=== PATIENT | female | born 1990 | race Caucasian/White ===

== ENCOUNTER 2025-01-03 13:16 | Outpatient (AMB) | payer MEDICAID, SELFPAY ==
--- NOTE | 2025-01-03 13:26 | AMB.OBINITIA ---
Vital Signs 01/03/25 13:32 Height 1.6 m Height Method Stated Weight 59.421 kg Weight Measurement Method Standing Scale BMI 23.2 BP 114/71 Blood Pressure Source Automatic Cuff Blood Pressure Location Left Upper Arm Position Sitting Pulse 99 Pulse Source Monitor Temp 97.2 F Temp Source Oral Pulse Oximetry (%) 98 Oxygen Delivery Method Room Air Allergies/Home Meds Allergies & Medications Allergies No Known Allergies Allergy (Verified 01/03/25 13:35) Medication Reconciliation No Known Home Medications 01/03/25 [History Confirmed 01/03/25] Intake Visit Data Collection New Patient or Established: New Patient (never been to [facility]) Reason for Visit:: New OB visit Seen by Clinical Staff ONLY (RN/MA): No Ceiling Insulation Blower Required: No Do You Feel Safe at Home: Yes Authorities Contacted: N/A PCP or OBGYN visit in last 3 months: Yes Hx Now: Yes Are you currently on any form of Control: No Last menstrual period: 09/13/24 Pain Present Currently: No Pain Scale Used: Turcios-Starkey/Numerical Pain scale:: 0 Smoking Status Smoking Status: Never smoker Questionnaires Covid-19 Vaccine Questionnaire Has patient been vacinated for Covid-19 Have you been vacinated for Covid-19: No PHQ-9 PHQ-2 Over the last 2 weeks, how often have you been bothered by any of the following problems? 1. Little interest or pleasure in doing things: not at all 2. Feeling down, depressed, or hopeless: not at all Total score: 0 Social History Living Situation History Marital Status: Lives With: Family Housing: House Housing Other:: Patient stays at home and homeschools her children. 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 Tobacco History Smoking Status: Never smoker Alcohol History Alcohol Intake: Former Alcohol Intake Frequency: holidays/special occasions only Domestic Abuse History Do You Feel Safe at Home: Yes Past Medical History Past Medical History Have you ever been diagnosed with any of the following: Neurological Problems Meningitis: No Seizures: No Guillain-Austin Syndrome: No Migraine: No Cardiology Problems Cardiac Arrhythmia: No Heart Murmur: No Atherosclerotic Heart Disease: No Hypercholesterolemia: No Rheumatic Fever: No Deep Vein Thrombosis: No Hypertension: No Hypotension: No Respiratory Problems Asthma: No Pulmonary Embolism: No Sleep Apnea: No Stomache/Intestinal Problems Celiac Disease: No Gall Bladder Disease: No Diverticulitis: No Gastroesophageal Reflux Disease: No Genital/Urinary Problems Renal Disease: No Kidney Stones: No Reproductive Problems Breast Cancer: No Endometriosis: No Fibroids: No Genital Herpes: No Gonorrhea: No Pelvic Inflammatory Disease: No Polycystic Ovarian Syndrome: No Previous Pregnancies: Yes (History of x 3 in the past) Syphilis: No Musculoskeletal Problems Arthritis: No Rheumatoid Arthritis: No Scoliosis: No Carpal Tunnel Syndrome: No Fibromyalgia: No Endocrine Problems Diabetes Mellitus Type 2: No Hyperthyroidism: No Hypothyroidism: No Systemic Lupus Erythematosus: No Blood Problems Anemia: No Clotting Problems: No Psychologic Problems Depression: No Anxiety: No Attention Deficit Disorder: No Other Problems Hospitalization: Yes (For x 3 in the past) Autoimmune Disease: No Cosmetic Surgery: No Blood Transfusions: No Anesthesia Reactions: No Surgical History Appendectomy: No Bariatric Surgery: No Breast Surgery: No History of Present Illness HPI Narrative Patient is a 34-year-old -0-0-3 history of x 3 in the past used to be my patient in [place] who presents as a new OB appointment. Patient is about 18 weeks by her last menstrual period. She did see Dr. Manzano at [facility] who ordered labs and an NIPT she does not have these results back yet. She is concerned because she had a pretty severe cold first trimester she did not have fevers or a rash. Patient has had x 3 in the past and needs a repeat . Today she denies heavy bleeding, cramping or pain. Her last Pap was in 2022 OB Initial Visit Menstrual History Menstrual reliability: definite Flow: normal Menstrual regularity: regular Monthly: Yes On control pills at conception: No OB History : 4 Para: 3 # of Living Children: 3 Delivery History 1st : Child's name: GRADY date: 04/29/19 sex: male Gestational age at delivery (weeks): 40 Delivery type: weight (lbs): 4082.331 g Delivery complications: CS for arrest D/O History of depression before or after : No 2nd : Child's name: IMELAD date: 02/18/21 sex: male Gestational age at delivery (weeks): 39 Delivery type: weight (lbs): 8000 g History of depression before or after : No Additional comments: Scheduled repeat CS 3rd : Child's name: NICOLE date: 06/16/23 sex: male Gestational age at delivery (weeks): 39 Delivery type: weight (lbs): 8000 g History of depression before or after : No Additional comments: Scheduled repeat Infection History & Risk Evaluation History of STDs: none HIV risk evaluation: low risk Hepatitis B risk evaluation: low risk Patient or partner has history of Genital Herpes: No Genetic Screening & History Genetic Screening/Teratology Counseling - Includes patient, baby's father, or anyone in either family with: 1. Patient's age 35 years or older as of estimated date of delivery: No 2. Thalassemia (Afghan, Kinyarwanda, Mediterranean, or Background); MCV less than 80: No 3. Neural Tube Defect (Meningomyelocele, Spina Bifida, or Anencephaly): No 4. Congenital Heart Defect: No 5. Down Syndrome: No 6. Diego-Sachs (Ashkenazi Mormon, Cajun, Azeri [place]): No 7. Zeb Disease (Ashkenazi Mormon): No 8. Familial Dysautonomia (Ashkenazi Mormon): No 9. Sickle Cell Disease or Trait (): No 10. Hemophilia or other blood disorders: No 11. Muscular Dystrophy: No 12. Cystic Fibrosis: No 13. Ranier's Chorea: No 14. Mental Retardation/Autism: No 15. Other inherited genetic or chromosomal disorder: No 16. Maternal Metabolic Disorder (EG,TYPE 1 Diabetes, PKU): No 17. Patient or baby's father had a child with defects not listed above: No 18. Recurrent loss or a stillbirth: No 19. Medications (including supplements, vitamins, herbs or otc drugs)/illicit/recreational drugs/alcohol since last menstrual period: No 20. Any other: No Comments/Counseling: Patient has already had NIPT drawn no results available yet Infection History 1. Live with someone with TB or exposed to TB: No 2. Rash or viral illness since last menstrual period: No 3. Hepatitis B,C: No Other (see comments) Source: [employer] OB Flowsheet OB Flowsheet Initial Weight: Not Recorded Date <del>?</del> EGA Weight Edema CTX Effacement BP Fundal ht Pres Dilation Effacement Station Visit Note Alb Glu FHR Mov 01/03/25 <del>?</del> 16w 0d 59.421 kg 114/71 130 active Review of Systems Constitutional Constitutional: Reports system reviewed and no additional complaints, except as documented Exam General Limitations: no limitations General Appearance: alert, in no apparent distress, comfortable, cooperative, healthy appearing and well groomed Head Head exam: atraumatic, normocephalic and normal inspection Neck Neck exam: Present normal inspection, full ROM and trachea midline Chest Chest inspection: Present normal inspection and symmetric chest wall rise Resp Respiratory exam: Present normal lung sounds bilaterally Card Cardiovascular exam: Present regular rate, normal rhythm and normal heart sounds Abdominal Abdominal exam: Present soft and normal bowel sounds Psych Psychiatric exam: Present normal affect and normal mood Skin Skin exam: Present warm, dry, intact and normal color Assessment & Plan Diagnosis / Problem List (1) Previous section: Status: Acute Plan: Previous x 3 for elective repeat at 39 weeks. (2) : Status: Acute Qualifiers: Weeks of gestation: 16 weeks Qualified Code(s): Z3A.16 - 16 weeks gestation of Plan: Follow-up on labs and NIPT. Order 20-week ultrasound for 4 weeks Additional Plan Follow Up: 4 Weeks Office Procedures OB Clinic LOC & Office Proc's Nursing/Assessment Patient Status: Initial/New Patient OB Clinic Nursing Assessment: BP Monitoring, Medication Reconciliation, Update PMH in EMR and Vital Signs OB Clinic Coordination of Care: Consent,records obtained, informed consent, Education Simp Pt/Fam, Lab and Imaging orders and Staff clarify orders Special Needs: Heart tones New Patient Charge New Patient Point Assignment: [id number] New Patient Point Charge: TAILER IN Level 4 ([id number])
[2025-01-03 13:32] VITALS: BP 114/71; PULSE 99; TEMP 36.2; O2SAT 98; BMI 23.2
== END 2025-01-03 14:52 | disposition home or self-care (01) ==
LOC: HODSOBC 13:16
PROVIDERS: PCP Obstetrics & Gynecology; Supervising Provider Obstetrics & Gynecology; Visit Provider Obstetrics & Gynecology
DX: Z34.82 Encounter for supervision of other normal pregnancy, second trimester (principal); Z3A.16 16 weeks gestation of pregnancy
CPT/HCPCS: 99204; G0463

== ENCOUNTER 2025-02-10 13:09 | Outpatient (AMB) | payer MEDICAID, SELFPAY ==
[2025-02-10 13:18] VITALS: BP 110/74; PULSE 80; RESP 16; TEMP 36; O2SAT 100; BMI 24.0
--- NOTE | 2025-02-10 13:18 | AMB.OBVISIT ---
Vital Signs 02/10/25 13:18 Height 1.6 m Height Method Stated Weight 61.462 kg Weight Measurement Method Standing Scale BMI 24.0 BP 110/74 Blood Pressure Source Automatic Cuff Blood Pressure Location Left Upper Arm Position Sitting Respiration 16 Pulse 80 Pulse Source Monitor Temp 96.8 F Temp Source Oral Pulse Oximetry (%) 100 Oxygen Delivery Method Room Air Allergies/Home Meds Allergies & Medications Allergies No Known Allergies Allergy (Verified 02/10/25 13:19) Medication Reconciliation azithromycin 250 mg tablet See Rx Instructions PO .COMPLEX #6 tabs 02/10/25 [Rx] Intake Visit Data Collection New Patient or Established: Established Patient (seen at [facility] [place] within 3 years) Reason for Visit:: return OB Seen by Clinical Staff ONLY (RN/MA): No 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 1. Little interest or pleasure in doing things: not at all 2. Feeling down, depressed, or hopeless: not at all Total score: 0 PHQ-9 3. Trouble falling or staying asleep, or sleeping too much: Not at all 4. Feeling tired or having little energy: Not at all 5. Poor appetite or overeating: Not at all 6. Feeling bad about yourself - or that you are a failure or have let yourself or your family down: Not at all 7. Trouble concentrating on things, such as reading the newspaper or watching television: Not at all 8. Moving or speaking so slowly that other people could have noticed? - Or the opposite - being so fidgety or restless that you have been moving around a lot more than usual: not at all 9. Thoughts that you would be better off or of hurting yourself in some way: Not at all Total score: 0 If you checked off any problems, how difficult have these problems made it for you to do your work, take care of things at home, or get along with other people?: not difficult at all Source: Developed by Drs. Gabriel Morales, Carolina Alonso, Bhupendra Pelayo and colleagues, with an educational nitesh from [employer]. Depression screen completed yes Social History Living Situation History Lives With: Family Housing: House Housing Other:: Patient stays at home and homeschools her children. Her is a WEB PRODUCTION ARTIST Tobacco History Smoking Status: Never smoker Alcohol History Alcohol Intake: Former Alcohol Intake Frequency: holidays/special occasions only Domestic Abuse History Do You Feel Safe at Home: Yes Past Medical History Past Medical History Have you ever been diagnosed with any of the following: Neurological Problems Meningitis: No Seizures: No Guillain-Mabscott Syndrome: No Migraine: No Cardiology Problems Cardiac Arrhythmia: No Heart Murmur: No Atherosclerotic Heart Disease: No Hypercholesterolemia: No Rheumatic Fever: No Deep Vein Thrombosis: No Hypertension: No Hypotension: No Respiratory Problems Asthma: No Pulmonary Embolism: No Sleep Apnea: No Stomache/Intestinal Problems Celiac Disease: No Gall Bladder Disease: No Diverticulitis: No Gastroesophageal Reflux Disease: No Genital/Urinary Problems Renal Disease: No Kidney Stones: No Reproductive Problems Breast Cancer: No Endometriosis: No Fibroids: No Genital Herpes: No Gonorrhea: No Pelvic Inflammatory Disease: No Polycystic Ovarian Syndrome: No Previous Pregnancies: Yes (History of x 3 in the past) Syphilis: No Musculoskeletal Problems Arthritis: No Rheumatoid Arthritis: No Scoliosis: No Carpal Tunnel Syndrome: No Fibromyalgia: No Endocrine Problems Diabetes Mellitus Type 2: No Hyperthyroidism: No Hypothyroidism: No Systemic Lupus Erythematosus: No Blood Problems Anemia: No Clotting Problems: No Psychologic Problems Depression: No Anxiety: No Attention Deficit Disorder: No Other Problems Hospitalization: Yes (For x 3 in the past) Cosmetic Surgery: No Blood Transfusions: No Anesthesia Reactions: No Surgical History Appendectomy: No Bariatric Surgery: No Breast Surgery: No Visit RACHANA Calculator Estimated Delivery Date Method Current WG Current Estimate 06/20/25 LMP (Certain) 21w 4d Expected Delivery Route/Plan Patient's had x 3. Need to schedule fourth at approximately 38 weeks. Specific Issue/Plans 3 previous C-sections. Patient unsure whether she wants tubal ligation. Initial Weight: Not Recorded Date <del>?</del> EGA Weight Edema CTX Effacement BP Fundal ht Pres Dilation Effacement Station Visit Note Alb Glu FHR Mov 01/03/25 <del>?</del> 16w 0d 59.421 kg 114/71 130 active 02/10/25 <del>?</del> 21w 3d 61.462 kg 110/74 23 150 active Notes Visit Date: 02/10/25 Last Updated by: Trinity Rebolledo (OB Clinic)MD Patient has a small cough and congestion she is producing a lot of mucus she states it was green now that a little more clear she has been doing this for at least 10 days. First trimester she had bronchitis and was treated with amoxicillin from a walk-in clinic she states she threw it up and did not finish it. Patient feels worn out. She has 3 boys at home. She is 21-3/7 weeks with her fourth boy. She is okay with trying a Z-Ronny at this point. Also she had a normal anatomy scan in [place] I do not have the results she has had a normal NIPT and I do not have those results patient is reporting vulvar varicosities and we did discuss a brace to her perineum. Assessment & Plan Diagnosis / Problem List (1) : Status: Acute Qualifiers: Weeks of gestation: 21 weeks Qualified Code(s): Z3A.21 - 21 weeks gestation of (2) Previous section: Status: Acute Assessment and Plan: Need to schedule at 38 weeks. (3) Vulvar varices in , second trimester: Status: Acute Assessment and Plan: Recommend vulvar support brace Office Procedures OB Clinic LOC & Office Proc's Nursing/Assessment Patient Status: Established Patient OB Clinic Nursing Assessment: BP Monitoring, Medication Reconciliation, Update PMH in EMR and Vital Signs OB Clinic Coordination of Care: Consent,records obtained, informed consent, Education Simp Pt/Fam and Staff clarify orders Special Needs: Heart tones Established Patient Charge Established Patient Point Assignment: 105 Established Patient Point Charge: EP Level 3 (80-115)
== END 2025-02-10 13:42 | disposition home or self-care (01) ==
LOC: HODSOBC 13:09
PROVIDERS: Supervising Provider Obstetrics & Gynecology; Visit Provider Obstetrics & Gynecology
DX: O22.12 Genital varices in pregnancy, second trimester (principal); O34.219 Maternal care for unspecified type scar from previous cesarean delivery; Z3A.21 21 weeks gestation of pregnancy
CPT/HCPCS: 99213; G0463

== ENCOUNTER 2025-03-10 08:26 | Outpatient (AMB) | payer MEDICAID, SELFPAY ==
--- NOTE | 2025-03-10 08:24 | OBCLNT_ITS ---
Vital Signs 03/10/25 08:29 Height 1.6 m Height Method Stated Weight 65.998 kg Weight Measurement Method Standing Scale BMI 25.7 BP 104/67 Blood Pressure Source Automatic Cuff Blood Pressure Location Left Upper Arm Position Sitting Respiration 16 Pulse 71 Pulse Source Monitor Temp 97.5 F Temp Source Oral Pulse Oximetry (%) 98 Oxygen Delivery Method Room Air Allergies/Home Meds Allergies & Medications Allergies No Known Allergies Allergy (Verified 03/10/25 08:31) Intake Visit Data Collection New Patient or Established: Established Patient (seen at [facility] within 3 years) Reason for Visit:: care 25 weeks Seen by Clinical Staff ONLY (RN/MA): No Financial Aid Officer Required: No Do You Feel Safe at Home: Yes Authorities Contacted: N/A PCP or OBGYN visit in last 3 months: Yes Date of Last PCP or OBGYN visit: 02/10/25 Hx Now: Yes Are you currently on any form of Control: No Pain Present Currently: No Pain Scale Used: Turcios-Starkey/Numerical Pain scale:: 0 Smoking Status Smoking Status: Never smoker Questionnaires Covid-19 Vaccine Questionnaire Has patient been vacinated for Covid-19 Have you been vacinated for Covid-19: No PHQ-9 PHQ-2 Over the last 2 weeks, how often have you been bothered by any of the following problems? 1. Little interest or pleasure in doing things: not at all 2. Feeling down, depressed, or hopeless: not at all Total score: 0 PHQ-9 3. Trouble falling or staying asleep, or sleeping too much: Not at all 4. Feeling tired or having little energy: Not at all 5. Poor appetite or overeating: Not at all 6. Feeling bad about yourself - or that you are a failure or have let yourself or your family down: Not at all 7. Trouble concentrating on things, such as reading the newspaper or watching television: Not at all 8. Moving or speaking so slowly that other people could have noticed? - Or the opposite - being so fidgety or restless that you have been moving around a lot more than usual: not at all 9. Thoughts that you would be better off or of hurting yourself in some way: Not at all Total score: 0 Source: Developed by Drs. Gabriel L. CarmenCarolina silveira, Bhupendra Pelayo and colleagues, with an educational nitesh from [employer]. Depression screen completed yes Social History Living Situation History Lives With: Family Housing: House Housing Other:: Patient stays at home and homeschools her children. 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 Tobacco History Smoking Status: Never smoker Second Hand Smoke Exposure: No Alcohol History Alcohol Intake: Former Alcohol Intake Frequency: holidays/special occasions only Domestic Abuse History Do You Feel Safe at Home: Yes Past Medical History Past Medical History Have you ever been diagnosed with any of the following: Neurological Problems Meningitis: No Seizures: No Guillain-Bristol Syndrome: No Migraine: No Cardiology Problems Cardiac Arrhythmia: No Heart Murmur: No Atherosclerotic Heart Disease: No Hypercholesterolemia: No Rheumatic Fever: No Deep Vein Thrombosis: No Hypertension: No Hypotension: No Respiratory Problems Asthma: No Pulmonary Embolism: No Sleep Apnea: No Stomache/Intestinal Problems Celiac Disease: No Gall Bladder Disease: No Diverticulitis: No Gastroesophageal Reflux Disease: No Genital/Urinary Problems Renal Disease: No Kidney Stones: No Reproductive Problems Breast Cancer: No Endometriosis: No Fibroids: No Genital Herpes: No Gonorrhea: No Pelvic Inflammatory Disease: No Polycystic Ovarian Syndrome: No Previous Pregnancies: Yes (History of x 3 in the past) Syphilis: No Musculoskeletal Problems Arthritis: No Rheumatoid Arthritis: No Scoliosis: No Carpal Tunnel Syndrome: No Fibromyalgia: No Endocrine Problems Diabetes Mellitus Type 2: No Hyperthyroidism: No Hypothyroidism: No Systemic Lupus Erythematosus: No Blood Problems Anemia: No Clotting Problems: No Psychologic Problems Depression: No Anxiety: No Attention Deficit Disorder: No Other Problems Hospitalization: Yes (For x 3 in the past) Cosmetic Surgery: No Blood Transfusions: No Anesthesia Reactions: No Surgical History Appendectomy: No Bariatric Surgery: No Breast Surgery: No Visit OB Visit Log OB Flowsheet Initial Weight: Not Recorded Date -?-?-?-?-?-?-?-?-?-?-?-?- EGA Weight Edema CTX Effacement BP Fundal ht Pres Dilation Effacement Station Visit Note Alb Glu FHR Mov 01/03/25 -?-?-?-?-?-?-?-?-?-?-?-?- 16w 0d 59.421 kg 114/71 130 active 02/10/25 -?-?-?-?-?-?-?-?-?-?-?-?- 21w 3d 61.462 kg 110/74 23 150 active 03/10/25 -?-?-?-?-?-?-?-?-?-?-?-?- 25w 3d 65.998 kg 104/67 26 Schedule at 38 we eks. 140 active RACHANA Calculator Estimated Delivery Date Method Current WG Current Estimate 06/20/25 LMP (Certain) 25w 3d Comments: Labs [facility] 12/26/2024 : A positive\antibody negative\RPR nonreactive\HIV negative\rubella immune\HIV negative\hepatitis B surface antigen negative\hep C negative\TB negative Expected Delivery Route/Plan Patient's had x 3. Need to schedule fourth at approximately 38 weeks. Specific Issue/Plans 3 previous C-sections. Patient unsure whether she wants tubal ligation. Notes Visit Date: 03/10/25 Last Updated by: Trinity Rebolledo (OB Clinic)MD Weight gain discussed. Patient has gained 10 pounds. Increase calories. Schedule glucose challenge test. Visit Date: 02/10/25 Last Updated by: Trinity Rebolledo (OB Clinic)MD Patient has a small cough and congestion she is producing a lot of mucus she states it was green now that a little more clear she has been doing this for at least 10 days. First trimester she had bronchitis and was treated with amoxicillin from a walk-in clinic she states she threw it up and did not finish it. Patient feels worn out. She has 3 boys at home. She is 21-3/7 weeks with her fourth boy. She is okay with trying a Z-Ronny at this point. Also she had a normal anatomy scan in [place] I do not have the results she has had a normal NIPT and I do not have those results patient is reporting vulvar varicosities and we did discuss a brace to her perineum. Assessment & Plan Diagnosis / Problem List (1) Previous section: Status: Acute (2) : Status: Acute Qualifiers: Weeks of gestation: 21 weeks Qualified Code(s): Z3A.21 - 21 weeks ges tation of (3) Vulvar varices in , second trimester: Status: Acute Office Procedures OB Clinic LOC & Office Proc's Nursing/Assessment Patient Status: Established Patient OB Clinic Nursing Assessment: Medication Reconciliation, Update PMH in EMR and Vital Signs OB Clinic Coordination of Care: Complex Care and Chronic Disease 1-5, Consent,records obtained, informed consent, Education Simp Pt/Fam, Lab and Imaging orders, Results/Orders obtained and Staff clarify orders Special Needs: Heart tones Established Patient Charge Established Patient Point Assignment: 135 Established Patient Point Charge: EP Level 4 (120-155)
[2025-03-10 08:29] VITALS: BP 104/67; PULSE 71; RESP 16; TEMP 36.4; O2SAT 98; BMI 25.7
== END 2025-03-10 09:03 | disposition home or self-care (01) ==
LOC: HODSOBC 08:26
PROVIDERS: Supervising Provider Obstetrics & Gynecology; Visit Provider Obstetrics & Gynecology
DX: O09.292 Supervision of pregnancy with other poor reproductive or obstetric history, second trimester (principal); Z3A.25 25 weeks gestation of pregnancy; O34.219 Maternal care for unspecified type scar from previous cesarean delivery; O09.892 Supervision of other high risk pregnancies, second trimester; O22.12 Genital varices in pregnancy, second trimester
CPT/HCPCS: 99214; G0463

== ENCOUNTER 2025-04-09 11:06 | Outpatient (AMB) | payer MEDICAID, SELFPAY ==
[2025-04-09 11:11] VITALS: BP 104/64; PULSE 74; RESP 15; TEMP 36.4; O2SAT 98; BMI 26.4
--- NOTE | 2025-04-09 11:11 | AMB.OBVISIT ---
Vital Signs 04/09/25 11:11 Height 1.6 m Height Method Stated Weight 67.642 kg Weight Measurement Method Standing Scale BMI 26.4 BP 104/64 Blood Pressure Source Automatic Cuff Blood Pressure Location Right Upper Arm Position Sitting Respiration 15 Pulse 74 Pulse Source Monitor Temp 97.5 F Temp Source Oral Pulse Oximetry (%) 98 Oxygen Delivery Method Room Air Allergies/Home Meds Allergies & Medications Allergies No Known Allergies Allergy (Verified 04/09/25 11:11) Medication Reconciliation No Known Home Medications 04/09/25 [History Confirmed 04/09/25] Intake Visit Data Collection New Patient or Established: Established Patient (seen at [facility] within 3 years) Reason for Visit:: CARE Seen by Clinical Staff ONLY (RN/MA): No Family Consultant Required: No Do You Feel Safe at Home: Yes Authorities Contacted: N/A PCP or OBGYN visit in last 3 months: Yes Hx Now: Yes Are you currently on any form of Control: No Pain Present Currently: No Pain Scale Used: Turcios-Starkey/Numerical Pain scale:: 0 Smoking Status Smoking Status: Never smoker Questionnaires Covid-19 Vaccine Questionnaire Has patient been vacinated for Covid-19 Have you been vacinated for Covid-19: No PHQ-9 PHQ-2 Over the last 2 weeks, how often have you been bothered by any of the following problems? 1. Little interest or pleasure in doing things: not at all 2. Feeling down, depressed, or hopeless: not at all Total score: 0 PHQ-9 3. Trouble falling or staying asleep, or sleeping too much: Not at all 4. Feeling tired or having little energy: Not at all 5. Poor appetite or overeating: Not at all 6. Feeling bad about yourself - or that you are a failure or have let yourself or your family down: Not at all 7. Trouble concentrating on things, such as reading the newspaper or watching television: Not at all 8. Moving or speaking so slowly that other people could have noticed? - Or the opposite - being so fidgety or restless that you have been moving around a lot more than usual: not at all 9. Thoughts that you would be better off or of hurting yourself in some way: Not at all Total score: 0 Source: Developed by Drs. Gabriel Morales, Carolina Alonso, Bhupendra Pelayo and colleagues, with an educational nitesh from [employer]. Depression screen completed yes Social History Living Situation History Lives With: Family Housing: House Housing Other:: Patient stays at home and homeschools her children. 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: Past Medical History Past Medical History: No Hx Hypothyroidism, No Hx Hyperthyroidism, No Hx Breast Cancer, No Hx Hypertension, No Hx Anemia, No Hx Renal Disease, No Hx Deep Vein Thrombosis, No Hx Diabetes Mellitus Type 2 and No Hx Polycystic Ovarian Syndrome Care OB Visit Log OB Flowsheet Initial Weight: Not Recorded Date <del>?</del> EGA Weight BP Alb Glu CTX Pres Fundal ht FHR Mov Dilation Station Effacement Hx Notes Visit Note 01/03/25 <del>?</del> 16w 0d 59.421 kg 114/71 130 active 02/10/25 <del>?</del> 21w 3d 61.462 kg 110/74 23 150 active 03/10/25 <del>?</del> 25w 3d 65.998 kg 104/67 26 140 active Schedule at 38 weeks. 04/09/25 <del>?</del> 29w 5d 67.642 kg 104/64 31 135 active wants CS 06/12/25 Positive movement no contractions no vaginal bleeding no loss of fluids RACHANA Calculator Estimated Delivery Date Method Current WG Current Estimate 06/20/25 LMP (Certain) 29w 5d Comments: Records from [facility]. Blood type not checked. Antibody screen not checked. Rubella immune\RPR nonreactive\HIV negative\hepatitis B surface antigen negative\HIV negative\TB test negative\cystic fibrosis test negative. No urinalysis, gonorrhea, chlamydia checked. Glucose test 99. Expected Delivery Route/Plan Patient's had x 3. Need to schedule fourth at approximately 38 weeks. Specific Issue/Plans 3 previous C-sections. Patient unsure whether she wants tubal ligation. Notes Visit Date: 03/10/25 Last Updated by: Trinity Rebolledo (OB Clinic)MD Weight gain discussed. Patient has gained 10 pounds. Increase calories. Schedule glucose challenge test. Visit Date: 02/10/25 Last Updated by: Trinity Rebolledo (OB Clinic)MD Patient has a small cough and congestion she is producing a lot of mucus she states it was green now that a little more clear she has been doing this for at least 10 days. First trimester she had bronchitis and was treated with amoxicillin from a walk-in clinic she states she threw it up and did not finish it. Patient feels worn out. She has 3 boys at home. She is 21-3/7 weeks with her fourth boy. She is okay with trying a Z-Ronny at this point. Also she had a normal anatomy scan in [place] I do not have the results she has had a normal NIPT and I do not have those results patient is reporting vulvar varicosities and we did discuss a brace to her perineum. Office Procedures OB Clinic LOC & Office Proc's Nursing/Assessment Patient Status: Established Patient OB Clinic Nursing Assessment: Medication Reconciliation, Update PMH in EMR and Vital Signs OB Clinic Coordination of Care: Complex Care and Chronic Disease 1-5, Consent,records obtained, informed consent, Education Simp Pt/Fam, Lab and Imaging orders, Results/Orders obtained and Staff clarify orders Special Needs: Heart tones Established Patient Charge Established Patient Point Assignment: 135 Established Patient Point Charge: EP Level 4 (120-155)
== END 2025-04-09 11:22 | disposition home or self-care (01) ==
LOC: HODSOBC 11:06
PROVIDERS: PCP Obstetrics & Gynecology; Referring Provider Obstetrics & Gynecology; Supervising Provider Obstetrics & Gynecology; Visit Provider Obstetrics & Gynecology
DX: O09.293 Supervision of pregnancy with other poor reproductive or obstetric history, third trimester (principal); Z3A.29 29 weeks gestation of pregnancy; O34.219 Maternal care for unspecified type scar from previous cesarean delivery
CPT/HCPCS: 99214; G0463

== ENCOUNTER 2025-04-23 09:23 | Outpatient (AMB) | payer MEDICAID, SELFPAY ==
[2025-04-23 09:32] VITALS: BP 126/75; PULSE 103; RESP 18; TEMP 36.4; O2SAT 97; BMI 26.9
--- NOTE | 2025-04-23 09:32 | OBCLNT_ITS ---
Vital Signs 04/23/25 09:32 Height 1.6 m Height Method Stated Weight 69.059 kg Weight Measurement Method Standing Scale BMI 26.9 BP 126/75 Blood Pressure Source Automatic Cuff Blood Pressure Location Right Upper Arm Position Sitting Respiration 18 Pulse 103 H Pulse Source Monitor Temp 97.5 F Temp Source Temporal Artery Scan Pulse Oximetry (%) 97 Oxygen Delivery Method Room Air Allergies/Home Meds Allergies & Medications Allergies No Known Allergies Allergy (Verified 04/09/25 11:11) Intake Visit Data Collection New Patient or Established: Established Patient (seen at [facility] within 3 years) Reason for Visit:: OB 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 1. Little interest or pleasure in doing things: not at all PHQ-9 8. Moving or speaking so slowly that other people could have noticed? - Or the opposite - being so fidgety or restless that you have been moving around a lot more than usual: not at all Source: Developed by Drs. Gabriel Morales, Carolina Alonso, Bhupendra Pelayo and colleagues, with an educational nitesh from [employer]. Social History Living Situation History Marital Status: Lives With: Family Housing: House Housing Other:: Patient stays at home and homeschools her children. 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 Medical History Past Medical History: No Hx Hypothyroidism, No Hx Hyperthyroidism, No Hx Breast Cancer, No Hx Hypertension, No Hx Anemia, No Hx Renal Disease, No Hx Deep Vein Thrombosis, No Hx Diabetes Mellitus Type 2 and No Hx Polycystic Ovarian Syndrome Care OB Visit Log OB Flowsheet Initial Weight: Not Recorded Date -?-?-?-?-?-?-?-?-?-?-?-?- EGA Weight BP Alb Glu CTX Pres Fundal ht FHR Mov Dilation Station Effacement Hx Notes Visit Note 01/03/25 -?-?-?-?-?-?-?-?-?-?-?-?- 16w 0d 59.421 kg 114/71 130 active 02/10/25 -?-?-?-?-?-?-?-?-?-?-?-?- 21w 3d 61.462 kg 110/74 23 150 active 03/10/25 -?-?-?-?-?-?-?-?-?-?-?-?- w 3d 65.998 kg 104/67 26 140 active Schedule at 38 weeks. 04/09/25 -?-?-?-?-?-?-?-?-?-?-?-?- 29w 5d 67.642 kg 104/64 31 135 active wants CS 05/15 12/07 Positive movement no contractions no vaginal bleeding no loss of fluids 04/23/25 -?-?-?-?-?-?-?-?-?-?-?-?- 31w 5d 69.059 kg 126/75 33 143 active +FM, no UCs or LOF. No VB RACHANA Calculator Estimated Delivery Date Method Current WG Current Estimate 06/20/25 LMP (Certain) 32w 1d Comments: LMP 09/13/24 CS x 3 Started care in [place] Dr Umaña, transferred at 18 weeks [facility] labs A+/Ab screen-/RI/RPR NR/Heb BSag-/HIV-/Hep C-/TB test -/CF- Expected Delivery Route/Plan Patient's had x 3. Need to schedule fourth at approximately 38 weeks. Specific Issue/Plans 3 previous C-sections. Patient unsure whether she wants tubal ligation. Notes Visit Date: 03/10/25 Last Updated by: Trinity Rebolledo (OB Clinic)MD Weight gain discussed. Patient has gained 10 pounds. Increase calories. Schedule glucose challenge test. Visit Date: 02/10/25 Last Updated by: Trinity Rebolledo (OB Clinic)MD Patient has a small cough and congestion she is producing a lot of mucus she states it was green now that a little more clear she has been doing this for at least 10 days. First trimester she had bronchitis and was treated with amoxicillin from a walk-in clinic she states she threw it up and did not finish it. Patient feels worn out. She has 3 boys at home. She is 21-3/7 weeks with her fourth boy. She is okay with trying a Z-Ronny at this point. Also she had a normal anatomy scan in [place] I do not have the results she has had a normal NIPT and I do not have those results patient is reporting vulvar varicosities and we did discuss a brace to her perineum. Office Procedures OB Clinic LOC & Office Proc's Nursing/Assessment Patient Status: Established Patient OB Clinic Nursing Assessment: BP Monitoring, Medication Reconciliation, Update PMH in EMR and Vital Signs OB Clinic Coordination of Care: Complex Care and Chronic Disease 1-5, Consent,records obtained, informed consent, Lab and Imaging orders and Results/Orders obtained Special Needs: Heart tones Established Patient Charge Established Patient Point Assignment: 125 Established Patient Point Charge: EP Level 4 (120-155)
== END 2025-04-23 09:44 | disposition home or self-care (01) ==
LOC: HODSOBC 09:23
PROVIDERS: PCP Obstetrics & Gynecology; Referring Provider Obstetrics & Gynecology; Supervising Provider Obstetrics & Gynecology; Visit Provider Obstetrics & Gynecology
DX: O09.293 Supervision of pregnancy with other poor reproductive or obstetric history, third trimester (principal); O34.219 Maternal care for unspecified type scar from previous cesarean delivery; Z3A.31 31 weeks gestation of pregnancy
CPT/HCPCS: 99214; G0463

== ENCOUNTER 2025-05-09 10:20 | Outpatient (AMB) | payer MEDICAID, SELFPAY ==
--- NOTE | 2025-05-09 10:36 | AMB.OBVISIT ---
Vital Signs 05/09/25 10:37 Height 1.6 m Height Method Stated Weight 70.874 kg Weight Measurement Method Standing Scale BMI 27.6 BP 108/69 Blood Pressure Source Automatic Cuff Blood Pressure Location Left Upper Arm Position Sitting Respiration 18 Pulse 95 Pulse Source Monitor Temp 96.8 F Temp Source Oral Pulse Oximetry (%) 98 Oxygen Delivery Method Room Air Allergies/Home Meds Allergies & Medications Allergies No Known Allergies Allergy (Verified 05/09/25 10:37) Medication Reconciliation No Known Home Medications 04/09/25 [History Confirmed 05/09/25] Intake Visit Data Collection New Patient or Established: Established Patient (seen at [facility] within 3 years) Reason for Visit:: OBC Seen by Clinical Staff ONLY (RN/MA): No 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 1. Little interest or pleasure in doing things: not at all 2. Feeling down, depressed, or hopeless: not at all Total score: 0 PHQ-9 3. Trouble falling or staying asleep, or sleeping too much: Not at all 4. Feeling tired or having little energy: Not at all 5. Poor appetite or overeating: Not at all 6. Feeling bad about yourself - or that you are a failure or have let yourself or your family down: Not at all 7. Trouble concentrating on things, such as reading the newspaper or watching television: Not at all 8. Moving or speaking so slowly that other people could have noticed? - Or the opposite - being so fidgety or restless that you have been moving around a lot more than usual: not at all 9. Thoughts that you would be better off or of hurting yourself in some way: Not at all Total score: 0 If you checked off any problems, how difficult have these problems made it for you to do your work, take care of things at home, or get along with other people?: not difficult at all Source: Developed by Drs. Gabriel Morales, Carolina Alonso, Bhupendra Pelayo and colleagues, with an educational nitesh from [employer]. Depression screen completed yes Social History Living Situation History Lives With: Family Housing: House Housing Other:: Patient stays at home and homeschools her children. 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 Medical History Past Medical History: No Hx Hypothyroidism, No Hx Hyperthyroidism, No Hx Breast Cancer, No Hx Hypertension, No Hx Anemia, No Hx Renal Disease, No Hx Deep Vein Thrombosis, No Hx Diabetes Mellitus Type 2 and No Hx Polycystic Ovarian Syndrome Care OB Visit Log OB Flowsheet Initial Weight: Not Recorded Date <del>?</del> EGA Weight BP Alb Glu CTX Pres Fundal ht FHR Mov Dilation Station Effacement Hx Notes Visit Note 01/03/25 <del>?</del> 16w 0d 59.421 kg 114/71 130 active 02/10/25 <del>?</del> 21w 3d 61.462 kg 110/74 23 150 active 03/10/25 <del>?</del> 25w 3d 65.998 kg 104/67 26 140 active Schedule at 38 weeks. 04/09/25 <del>?</del> 29w 5d 67.642 kg 104/64 31 135 active wants CS 06/12/25 Positive movement no contractions no vaginal bleeding no loss of fluids 04/23/25 <del>?</del> 31w 5d 69.059 kg 126/75 33 143 active +FM, no UCs or LOF. No VB 05/09/25 <del>?</del> 34w 0d 70.874 kg 108/69 34 135 active +FM, no UCs or LOF RACHANA Calculator Estimated Delivery Date Method Current WG Current Estimate 06/20/25 LMP (Certain) 34w 3d Expected Delivery Route/Plan Patient's had x 3. Need to schedule fourth at approximately 38 weeks. Specific Issue/Plans 3 previous C-sections. Patient unsure whether she wants tubal ligation. Started [facility] DR Chasidy Ramirez, met him once Only [facility] labs ordered and on chart. No blood type on chart [facility] Labs from 12/26/23: No type and screen, RI/RPR NR/HepBSag-/HIV-/Hep C-/TB test-/CF test -/ No urine Cx/GC/Chlam available/TB test - GCT WNL 99 Notes Visit Date: 05/09/25 Last Updated by: Trinity Rebolledo (OB Clinic)MD CS Date 06/06/25 Visit Date: 03/10/25 Last Updated by: Trinity Rebolledo (OB Clinic)MD Weight gain discussed. Patient has gained 10 pounds. Increase calories. Schedule glucose challenge test. Visit Date: 02/10/25 Last Updated by: Trinity Rebolledo (OB Clinic)MD Patient has a small cough and congestion she is producing a lot of mucus she states it was green now that a little more clear she has been doing this for at least 10 days. First trimester she had bronchitis and was treated with amoxicillin from a walk-in clinic she states she threw it up and did not finish it. Patient feels worn out. She has 3 boys at home. She is 21-3/7 weeks with her fourth boy. She is okay with trying a Z-Ronny at this point. Also she had a normal anatomy scan in [place] I do not have the results she has had a normal NIPT and I do not have those results patient is reporting vulvar varicosities and we did discuss a brace to her perineum. Office Procedures OB Clinic LOC & Office Proc's Nursing/Assessment Patient Status: Established Patient OB Clinic Nursing Assessment: Medication Reconciliation, Update PMH in EMR and Vital Signs OB Clinic Coordination of Care: Education Complex Pt/Fam, Consent,records obtained, informed consent, Lab and Imaging orders and Staff clarify orders Special Needs: Heart tones Established Patient Charge Established Patient Point Assignment: 110 Established Patient Point Charge: EP Level 3 (80-115)
[2025-05-09 10:37] VITALS: BP 108/69; PULSE 95; RESP 18; TEMP 36; O2SAT 98; BMI 27.6
== END 2025-05-09 11:13 | disposition home or self-care (01) ==
LOC: HODSOBC 10:20
PROVIDERS: PCP Obstetrics & Gynecology; Referring Provider Obstetrics & Gynecology; Supervising Provider Obstetrics & Gynecology; Visit Provider Obstetrics & Gynecology
DX: O09.293 Supervision of pregnancy with other poor reproductive or obstetric history, third trimester (principal); Z3A.34 34 weeks gestation of pregnancy; O34.218 Maternal care for other type scar from previous cesarean delivery
CPT/HCPCS: 99213; G0463

== ENCOUNTER 2025-06-02 11:18 | Outpatient (AMB) | payer MEDICAID, SELFPAY ==
--- NOTE | 2025-06-02 11:42 | OBCLNT_ITS ---
Vital Signs 06/02/25 11:43 Height 1.6 m Height Method Measured Weight 72.575 kg Weight Measurement Method Standing Scale BMI 28.3 BP 114/74 Blood Pressure Source Automatic Cuff Blood Pressure Location Right Upper Arm Position Sitting Respiration 17 Pulse 82 Pulse Source Monitor Temp 97.8 F Temp Source Temporal Artery Scan Pulse Oximetry (%) 97 Oxygen Delivery Method Room Air Allergies/Home Meds Allergies & Medications Allergies No Known Allergies Allergy (Verified 06/02/25 11:43) Medication Reconciliation No Known Home Medications 04/09/25 [History Confirmed 06/02/25] Intake Visit Data Collection New Patient or Established: Established Patient (seen at [facility] within 3 years) Reason for Visit:: OBC Consent obtained for Telemed Visit: No Seen by Clinical Staff ONLY (RN/MA): No Gun Examiner Required: No Do You Feel Safe at Home: Yes Authorities Contacted: N/A PCP or OBGYN visit in last 3 months: Yes Date of Last PCP or OBGYN visit: 05/09/25 Hx Now: Yes Are you currently on any form of Control: No Pain Present Currently: No Pain Scale Used: Turcios-Starkey/Numerical Pain scale:: 0 Smoking Status Smoking Status: Never smoker Questionnaires Covid-19 Vaccine Questionnaire Has patient been vacinated for Covid-19 Have you been vacinated for Covid-19: Yes PHQ-9 PHQ-2 Over the last 2 weeks, how often have you been bothered by any of the following problems? 1. Little interest or pleasure in doing things: not at all PHQ-9 8. Moving or speaking so slowly that other people could have noticed? - Or the opposite - being so fidgety or restless that you have been moving around a lot more than usual: not at all Source: Developed by Drs. Gabriel Morales, Carolina Alonso, Bhupendra Pelayo and colleagues, with an educational nitesh from [employer]. Social History Living Situation History Lives With: Family Housing: House Housing Other:: Patient stays at home and homeschools her children. 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-?-?-?-?-?- EGA Weight BP Alb Glu CTX Pres Fundal ht FHR Mov Dilation Station Effacement Hx Notes Visit Note 01/03/25 -?-?-?-?-?-?-?-?-?-?-?-?- 16w 0d 59.421 kg 114/71 130 active 02/10/25 -?-?-?-?-?-?-?-?-?-?-?-?- 21w 3d 61.462 kg 110/74 23 150 active 03/10/25 -?-?-?-?-?-?-?-?-?-?-?-?- 25w 3d 65.998 kg 104/67 26 140 active Schedule at 38 weeks. 04/09/25 -?-?-?-?-?-?-?-?-?-?-?-?- 29w 5d 67.642 kg 104/64 31 135 active wants CS 05/15 12/07 Positive movement no contractions no vaginal bleeding no loss of fluids 04/23/25 -?-?-?-?-?-?-?-?-?-?-?-?- 31w 5d 69.059 kg 126/75 33 143 active +FM, no UCs or LOF. No VB 05/09/25 -?-?-?-?-?-?-?-?-?-?-?-?- 34w 0d 70.874 kg 108/69 34 135 active +FM, no UCs or LOF 06/02/25 -?-?-?-?-?-?-?-?-?-?-?-?- 37w 3d 72.575 kg 114/74 cephalic 36 145 active Positive movement no regular contractions no vaginal bleeding Patient had a in the family of the RACHANA Calculator Estimated Delivery Date Method Current WG Current Estimate 06/20/25 LMP (Certain) 37w 3d Expected Delivery Route/Plan Patient's had x 3. Need to schedule fourth at approximately 38 weeks. Specific Issue/Plans 3 previous C-sections. Patient unsure whether she wants tubal ligation. Started [facility] DR Chasidy Ramirez, met him once Only [facility] labs ordered and on chart. No blood type on chart [facility] Labs from 12/26/23: No type and screen, RI/RPR NR/HepBSag-/HIV-/Hep C-/TB test-/CF test -/ No urine Cx/GC/Chlam available/TB test - GCT WNL 99 Notes Visit Date: 06/02/25 Last Updated by: Trinity [facility])MD scheduled 06/12/2025 at 7:30 in the morning. All instructions given. Patient will be consented the day of surgery. Patient to be there at 5:30 in the morning. Visit Date: 05/09/25 Last Updated by: Trinity Rebolledo (OB Clinic)MD CS Date 06/06/25 Visit Date: 03/10/25 Last Updated by: Trinity [facility])MD Weight gain discussed. Patient has gained 10 pounds. Increase calories. Schedule glucose challenge test. Visit Date: 02/10/25 Last Updated by: Trinity Rebolledo (OB Clinic)MD Patient has a small cough and congestion she is producing a lot of mucus she states it was green now that a little more clear she has been doing this for at least 10 days. First trimester she had bronchitis and was treated with amoxicillin from a walk-in clinic she states she threw it up and did not finish it. Patient feels worn out. She has 3 boys at home. She is 21-3/7 weeks with her fourth boy. She is okay with trying a Z-Ronny at this point. Also she had a normal anatomy scan in [place] I do not have the results she has had a normal NIPT and I do not have those results patient is reporting vulvar varicosities and we did discuss a brace to her perineum. Office Procedures OB Clinic LOC & Office Proc's Nursing/Assessment Patient Status: Established Patient OB Clinic Nursing Assessment: Medication Reconciliation, Update PMH in EMR and Vital Signs OB Clinic Coordination of Care: Complex Care and Chronic Disease 1-5, Co nsent,records obtained, informed consent, Education Simp Pt/Fam and 4+ Authorizations needed Special Needs: Heart tones Established Patient Charge Established Patient Point Assignment: 130 Established Patient Point Charge: EP Level 4 (120-155)
[2025-06-02 11:43] VITALS: BP 114/74; PULSE 82; RESP 17; TEMP 36.6; O2SAT 97; BMI 28.3
== END 2025-06-02 12:29 | disposition home or self-care (01) ==
LOC: HODSOBC 11:18
PROVIDERS: PCP Obstetrics & Gynecology; Referring Provider Obstetrics & Gynecology; Supervising Provider Obstetrics & Gynecology; Visit Provider Obstetrics & Gynecology
DX: O09.293 Supervision of pregnancy with other poor reproductive or obstetric history, third trimester (principal); O34.219 Maternal care for unspecified type scar from previous cesarean delivery; Z3A.37 37 weeks gestation of pregnancy
CPT/HCPCS: 99214; G0463

== ENCOUNTER 2025-06-12 05:37 | Inpatient (IN) | payer MEDICAID, SELFPAY ==
[2025-06-12] VITALS (34 sets, daily range): BP systolic 0–108; BP diastolic 0–69; PULSE 57–89; RESP 12–21; TEMP 36.3–36.9; O2SAT 95–100; BMI 28.7
[2025-06-12] MEDS: RINGERS LACTATED 1000 ML 1,000 ML 100 ML IV ×2 (06:20→07:28)
[2025-06-12 06:48] LABS: Basophils # (Auto) 0.0 Thou/mm3 (0.0-0.2); Basophils % (Auto) 0 % (0-2.5); Eosinophils # (Auto) 0.1 Thou/mm3 (0.0-0.5); Eosinophils % (Auto) 1 % (0-10); Hematocrit 35.5 % (36.0-46.0); Hemoglobin 11.9 g/dL (12.0-16.0); Immature Granulocytes Auto 0.02 Thou/mm3 (0.00-0.00); Lymphocytes # (Auto) 1.5 Thou/mm3 (1.0-4.8); Lymphocytes % (Auto) 25 % (10-50); Mean Corpuscular HGB Conc 33.5 g/dl (31.0-37.0); Mean Corpuscular Hemoglobin 30.3 pg (25.0-35.0); Mean Corpuscular Volume 90 fL (80-100); Monocytes # (Auto) 0.5 Thou/mm3 (0.0-0.8); Monocytes % (Auto) 9 % (0-12); Neutrophils # (Auto) 3.7 Thou/mm3 (1.8-7.7); Neutrophils % (Auto) 65 % (37-80); Nucleated Red Blood Cell # 0.00 Thou/mm3 (0.00-0.00); Nucleated Red Blood Cell % 0 /100 WBC (0); Platelet Count 157 Thou/mm3 (140-440); RDW Standard Deviation 40.5 fL (36.4-46.3); Red Blood Count 3.93 Miln/mm3 (4.00-5.20); White Blood Count 5.8 Thou/mm3 (3.6-11.0)
[2025-06-12 06:50] LABS: Amphetamine/Metham Scrn,Ur OB Negative (Negative); Benzoylecgonine Screen, Ur OB Negative (Negative); Opiate Screen,Urine OB Negative (Negative); THC Screen,Urine OB Negative (Negative)
[2025-06-12] MEDS: ceFAZolin/D5W 2 GM IV 2 GM/100 ML BAG IV (07:13)
[2025-06-12] MEDS: METOCLOPRAMIDE INJ 5 MG/ML VIAL 2 ML 10 MG IVP (07:14)
[2025-06-12] MEDS: FAMOTIDINE INJ 10 MG/ML VIAL 2 ML 20 MG IVP (07:18)
[2025-06-12 08:39] LABS: Syphilis Nonreactive (Nonreactive)
--- NOTE | 2025-06-12 08:41 | PD.LDHP ---
Documentation for date of: 06/12/25 OB Labor/Induct. HPI History of Present Illness Chief complaint: Scheduled repeat : 4 Para: 3 Living children: 3 History of sections: Yes History of : No RACHANA: 06/20/25 Gestational Age (weeks): 38 Gestational Age (days): 6 History of present illness: Patient is a 34-year-old -0-0-3 at 38-6/7 weeks with previous x 3 who presents for scheduled elective repeat section. All care is up-to-date on the chart with Dr. Sendy Rebolledo. On the day of admission she denied contractions loss of fluids or vaginal bleeding. She declined tubal ligation. History of Present Dating criteria: LMP confirmed by 2nd trimester US Adequate Care: Yes Ultrasounds: normal mid trimester US Obstetrical complications: none Medical complications: none Labs Maternal Blood Type: A Pos Labs: Positive: Rubella Titre, Negative: RPR, Hepatitis B and HIV and Unknown: Chlamydia, Gonorrhea, Herpes Type 1, Herpes Type 2, Group Beta Strep and Covid-19 Past Medical History Surgical History SURGICAL: Positive Section Meds Home Medications and Allergies Home Medications ?Medication ?Instructions ?Recorded ?Confirmed ?Type vit no.95-ferrous 1 tab PO QDAY 06/12/25 06/12/25 History fumarate 28 mg-folic acid 800 mcg tablet () Allergies Allergy/AdvReac Type Severity Reaction Status Date / Time No Known Allergies Allergy Verified 06/12/25 05:58 OB Exam Physical Exam Vital signs: Temp Pulse Resp BP Pulse Ox O2 Del Method 97.4 F 86 18 0/0 L 97 Room Air 06/12/25 06:00 06/12/25 06:10 06/12/25 06:00 06/12/25 06:38 06/12/25 07:25 06/12/25 06:00 Constitutional Constitutional: no acute distress Comments: Patient is alert and oriented x 3 in no apparent distress fundus is measuring approximately 38 weeks. No cyanosis clubbing or edema. Routine Respiratory Exam Respiratory: Present CTA bilaterally Routine Cardiovascular Exam Cardiovascular: Present RRR Routine Abdominal Exam Abdominal: Present soft Detailed Labor and Delivery Exam Presentation: Vertex Membranes: intact monitor accelerations: 15x15 monitor decelerations: None buttermaker continuous churn variability: Moderate (11-25) Contraction frequency (min): None OB Results Labs 06/12/25 06:17 Labs: Short CBC 06/12/25 Range/Units 06:17 WBC 5.8 (3.6-11.0) Thou/mm3 Hgb 11.9 L (12.0-16.0) g/dL Hct 35.5 L (36.0-46.0) % Plt Count 157 (140-440) Thou/mm3 OB Assessment & Plan Assessment and Plan (1) Previous section: Status: Acute Assessment and plan: Patient is consented for repeat #4. The risks of procedure were discussed including the risk of bleeding, infection, blood transfusion, damage to bowel, bladder, blood vessels, other organs. Prolonged hospital stay and further surgery should an above occur all questions were answered all consents were signed. (2) : Status: Acute Additional Plan Additional Plan Comment: For repeat (2) Qualifiers: Weeks of gestation: 21 weeks Qualified Code(s): Z3A.21 - 21 weeks gestation of
--- NOTE | 2025-06-12 09:35 | PD.GYNPROC ---
Operative Note - TELECOMMUNICATIONS PROJECT MANAGER Procedure Date of procedure: 06/05/25 Procedure Performed: Repeat low-transverse section Indication: Patient is a 34-year-old -0-0-3 history of x 3 who presents for an elective repeat section at 38-6/7 weeks. Pre-Op diagnosis: 1. IUP 38 6/7 weeks 2. Previous x 3 Post-Op diagnosis: Same Anesthesia type: Spinal Procedure description: After obtaining informed consent, the patient was brought back to the operating room and spinal anesthesia was administered. She was then prepped and draped in the dorsal supine position in a normal sterile fashion. 2 g of Ancef were given by anesthesia. A Ayers catheter was inserted into the patient's bladder. Once we tested the patient, her her spinal was not working. The patient was sat back up and the spinal replaced. She was then repositioned again. Her dressings were kept sterile and her drapes were Sterile. Once it was clear that her spinal was working, a Pfannenstiel skin incision was made through prior scar and carried down to the underlying fascia. The fascia was incised in the midline, and the fascial incision extended laterally using Carrillo scissors. The superior aspect of the fascia was grasped with Sabra clamps, and the underlying rectus muscles dissected off using blunt and sharp dissection. This was repeated in the inferior aspect the incision. The rectus muscles were in the midline, and the peritoneum was entered bluntly with the surgeon's fingers. This was extended superiorly and inferiorly with good visualization of the bladder using blunt dissection. The bladder blade was inserted and the uterus was incised in a low transverse fashion using a scalpel above the bladder reflection. The uterine incision was extended laterally using blunt dissection with the surgeon's fingers. The bag kline was ruptured and clear fluid was noted. The bladder blade was removed, and the infant was delivered atraumatically in a vertex presentation. The cord was clamped and cut and the was handed off to the waiting pediatric staff. Cord blood was collected and cord gases were saved. The placenta was then manually removed and the uterus exteriorized and cleared of all clots and debris. As the uterus was a little boggy, the patient was given IM Methergine and TXA. The uterine incision was repaired using 0 Monocryl in a running locked fashion. Excellent hemostasis was noted. At this point the uterus was noted to be firm. The uterus was returned to the patient's abdominal cavity, and copious irrigation carried out with warm normal saline. The uterine incision was reexamined and noted to be hemostatic. After ensuring the rectus muscles were hemostatic, these were reapproximated using running suture of 0 Monocryl. The fascia was closed with 0 Vicryl in a running fashion. The subcutaneous tissues were irrigated found to be hemostatic these were reapproximated using 3-0 plain. The skin was closed with a subcuticular suture of 4-0 Vicryl. The patient tolerated the procedure well, sponge, lap, needle, and instrument counts were correct x 2. The patient went to the recovery area awake and in stable condition. Complications were none. Fluids: crystalloid Fluid amount (mL): 3,000 Urine output (mL): 200 Implants: None Estimated blood loss (ml): 400 Findings: Liveborn male OA presentation no nuchal cord no meconium Apgars 9 and 9 weight was 8 pounds 4 ounces the placenta was complete spontaneous grossly normal. Fallopian tubes ovaries and uterus appeared grossly normal. Thin lower uterine segment but no window. No significant adhesions in her pelvis. Complications: none Surgical staff Josep Roger OUTPATIENT DIETITIAN Operation Date: 06/12/25 07:45 <No data on this case meets the specified criteria> Diagnosis Discharge Diagnosis (1) Previous section: Status: Acute Problem List Completed Was Problem List Reviewed/Reconciled?: Yes
--- NOTE | 2025-06-12 09:45 | OBDSUM_ITS ---
Data (Ruiz) Data Hx Section: Yes Maternal Blood Type: A Pos Rubella Titre: Positive RPR: Non-reactive Labs: Negative: RPR, Hepatitis B, HIV, Chlamydia and Gonorrhea and Unknown: Group Beta Strep : 4 Term: 3 Livin Delivery Data (Ruiz) Labor Data Induction/Augmentation Agent: None ROM date: 06/12/25 ROM time: 08:18 Amniotic membrane rupture type: Artificial Amniotic fluid description: Clear Delivery Data EDC: 06/20/25 EDC calculated by:: LMP/early US confirmation Date of arrival to unit: 06/12/25 Time of arrival to unit: 05:30 [place] delivery date: 06/12/25 delivery time: 08:18 Gestational age (weeks): 38 Gestational age (days): 6 Placenta delivery date: 06/12/25 Placenta delivery time: 08:18 Delivered by: [facility]led[facility] ([facility]) Delivery nurse: Rios Hudson RN [place] nurse: Mac HSIEH RN Regional Agronomist at delivery: Yes (Dr. Harvey) Support person(s) at delivery: fob Delivery Method Delivery method: Low Transverse Presentation: Vertex Anesthesia Type Anesthesia Type: None Anesthesia type: Spinal Delivery Room Medications Delivery room medications: Methergine 0.2 mg IM, Pitocin 20 u IV and other (TXA) Placenta Placenta delivery description: Manual Removal Cord blood sent to lab: Yes cord blood collection: Cord Blood Type Episiotomy Episiotomy description: None EBL Estimated blood loss (ml): 400 Umbilical Cord cord description: 3 Vessels Additional Procedures See op report for further details Complications Complications: None [place] Data (Ruiz) Data 's gender: Male weight (gms): 3760 g Weight (pounds): 8 lbs and 4.6 ozs 1 minute: 9 5 minutes: 9
[2025-06-12] MEDS: OXYTOCIN in NS 20 units 20 UNIT/1,000 ML BAG 125 UNIT IV ×2 (09:53→18:02)
[2025-06-12 12:17] LABS: Chlamydia trachomatis PCR Negative (Not Detect); Neisseria Gonorrhoeae DNA PCR Negative (Not Detect); Trichomonas Negative (Negative)
[2025-06-12] MEDS: IBUPROFEN TAB 400 MG TABLET 800 MG PO (19:55)
[2025-06-13] MEDS: RINGERS LACTATED 1000 ML 1,000 ML 100 ML IV (03:42)
[2025-06-13] MEDS: IBUPROFEN TAB 400 MG TABLET 800 MG PO ×3 (04:02→20:13)
[2025-06-13 04:05] VITALS: BP 97/60; PULSE 67; RESP 18; TEMP 36.7; O2SAT 96
--- NOTE | 2025-06-13 04:42 | PC.NURSE ---
Patient unable to urinate within 6 hrs post removal of alvarez catheter. Bladder scan showed 649 ml volume. Alvarez catheter inserted, 1000 ml urine output drained. notified. Alvarez catheter to stay till 10AM today (Jun 13, 2025)
[2025-06-13 05:16] LABS: Basophils # (Auto) 0.0 Thou/mm3 (0.0-0.2); Basophils % (Auto) 0 % (0-2.5); Eosinophils # (Auto) 0.1 Thou/mm3 (0.0-0.5); Eosinophils % (Auto) 1 % (0-10); Hematocrit 34.4 % (36.0-46.0); Hemoglobin 11.4 g/dL (12.0-16.0); Immature Granulocytes Auto 0.03 Thou/mm3 (0.00-0.00); Lymphocytes # (Auto) 1.4 Thou/mm3 (1.0-4.8); Lymphocytes % (Auto) 13 % (10-50); Mean Corpuscular HGB Conc 33.1 g/dl (31.0-37.0); Mean Corpuscular Hemoglobin 30.4 pg (25.0-35.0); Mean Corpuscular Volume 92 fL (80-100); Monocytes # (Auto) 0.8 Thou/mm3 (0.0-0.8); Monocytes % (Auto) 7 % (0-12); Neutrophils # (Auto) 7.9 Thou/mm3 (1.8-7.7); Neutrophils % (Auto) 78 % (37-80); Nucleated Red Blood Cell # 0.00 Thou/mm3 (0.00-0.00); Nucleated Red Blood Cell % 0 /100 WBC (0); Platelet Count 149 Thou/mm3 (140-440); RDW Standard Deviation 41.7 fL (36.4-46.3); Red Blood Count 3.75 Miln/mm3 (4.00-5.20); White Blood Count 10.2 Thou/mm3 (3.6-11.0)
[2025-06-13 07:20] VITALS: BP 109/74; PULSE 83; RESP 17; TEMP 36.6; O2SAT 98
--- NOTE | 2025-06-13 07:36 | PD.LDPPPRG ---
Subjective Subjective Interval history: Delivery type: , urinary retention after Ayers removal on postop day #1, Ayers was replaced. 1000 urinary retention at the time of Ayers removal Patient doing well this morning. No acute complaints. Ambulating, tolerating p.o. and voiding without difficulty. HTN/Pre-Eclampsia screen: No chest pain, shortness of breath, headache, visual changes, epigastric or right upper quadrant pain. Breast-feeding, lochia diminishing. Bowel: Flatus+/ BM+ Exam Vital Signs Temp Pulse Resp BP Pulse Ox O2 Del Method 98.1 F 67 18 97/60 96 Room Air 06/13/25 04:05 06/13/25 04:05 06/13/25 04:05 06/13/25 04:05 06/13/25 04:05 06/13/25 04:05 Constitutional Constitutional: no acute distress Routine HEENT Exam Head: Present normocephalic and atraumatic Eye: Present EOMI and PERRL ENT: Present mucous membranes moist Routine Neck Exam Neck: Present supple and trachea midline Routine Respiratory Exam Respiratory: Present chest non-tender, lungs clear, normal breath sounds and no resp distress Routine Cardiovascular Exam Cardiovascular: Present RRR Routine Abdominal Exam Abdominal: Present soft and normoactive bowel sounds Routine Extremities Exam Extremities: Present full ROM Routine Skin Exam Skin: Present intact, dry and warm Routine Neurological Exam Neurological: Present alert, oriented X3 and CN II-XII intact Routine Psychiatric Exam Psychiatric: Present normal affect and normal thought process Objective Labs 06/13/25 04:40 Labs: Laboratory Results - last 24 hr 06/12/25 06/12/25 06/12/25 06:17 07:20 10:40 WBC RBC Hgb Hct MCV MCH MCHC RDW Std Deviation Plt Count Neut % (Auto) Lymph % (Auto) [place] % (Auto) Eos % (Auto) Baso % (Auto) Neut # (Auto) Lymph # (Auto) [place] # (Auto) Eos # (Auto) Baso # (Auto) Immature Gran # (Auto) Absolute Nucleated RBC Immature Gran % Nucleated RBC % Syphilis Serology Nonreactive Chlam trachomat DNA PCR Negative N.gonorrhoeae DNA (PCR) Negative Trichomonas DNA Probe Negative Blood Type A Positive Antibody Screen NEGATIVE Crossmatch See Detail Blood Bank Wristband ID Yes 06/13/25 04:40 WBC 10.2 D RBC 3.75 L Hgb 11.4 L Hct 34.4 L MCV 92 MCH 30.4 MCHC 33.1 RDW Std Deviation 41.7 Plt Count 149 Neut % (Auto) 78 Lymph % (Auto) 13 [place] % (Auto) 7 Eos % (Auto) 1 Baso % (Auto) 0 Neut # (Auto) 7.9 H Lymph # (Auto) 1.4 [place] # (Auto) 0.8 Eos # (Auto) 0.1 Baso # (Auto) 0.0 Immature Gran # (Auto) 0.03 H Absolute Nucleated RBC 0.00 Immature Gran % 0 Nucleated RBC % 0 Syphilis Serology Chlam trachomat DNA PCR N.gonorrhoeae DNA (PCR) Trichomonas DNA Probe Blood Type Antibody Screen Crossmatch Blood Bank Wristband ID Assessment & Plan Problem List (1) Previous section: Status: Acute (2) delivery delivered: Status: Acute Assessment and plan: 1. Continue routine /post-op care 2. Labs reviewed, cbc appropriate 3. Remove dressing/Ayers 4. Encourage to ambulate, shower 5. Encourage PO intake, breast feeding (3) Urinary retention with incomplete bladder emptying: Status: Acute Assessment and plan: Due for Ayers removal at 10 AM Time Spent With Patient Time: Total time spent is greater than 50% in coordination of care (as documented) at patient's floor/unit and/or counseling patient:
[2025-06-13] MEDS: Milk Of Magnesia Susp 30 ML UDC PO (12:09)
[2025-06-13] MEDS: SIMETHICONE 80 MG CHEW PO (12:09)
[2025-06-13 15:40] VITALS: BP 100/62; PULSE 69; RESP 15; TEMP 37; O2SAT 97
[2025-06-13 20:00] VITALS: BP 99/60; PULSE 81; RESP 16; TEMP 36.6; O2SAT 97
[2025-06-13] MEDS: DOCUSATE SOD 100 MG CAPSULE PO (22:05)
[2025-06-14 04:00] VITALS: BP 105/62; PULSE 75; RESP 16; TEMP 36.6; O2SAT 97
[2025-06-14] MEDS: IBUPROFEN TAB 400 MG TABLET 800 MG PO ×2 (04:25→12:09)
[2025-06-14 08:00] VITALS: BP 110/72; PULSE 82; RESP 18; TEMP 36.7; O2SAT 99
--- NOTE | 2025-06-14 10:26 | PD.LDPPPRG ---
Subjective Subjective Interval history: Delivery type: Patient doing well this morning. No acute complaints. Ambulating, tolerating p.o. and voiding without difficulty. HTN/Pre-Eclampsia screen: No chest pain, shortness of breath, headache, visual changes, epigastric or right upper quadrant pain. Breast-feeding, lochia diminishing. Bowel: Flatus+/ BM+ Exam Vital Signs Temp Pulse Resp BP Pulse Ox O2 Del Method 98.1 F 82 18 110/72 99 Room Air 06/14/25 08:00 06/14/25 08:00 06/14/25 08:00 06/14/25 08:00 06/14/25 08:00 06/14/25 08:00 Constitutional Constitutional: no acute distress Routine HEENT Exam Head: Present normocephalic and atraumatic Eye: Present EOMI and PERRL ENT: Present mucous membranes moist Routine Neck Exam Neck: Present supple and trachea midline Routine Respiratory Exam Respiratory: Present chest non-tender, lungs clear, normal breath sounds and no resp distress Routine Cardiovascular Exam Cardiovascular: Present RRR Routine Abdominal Exam Abdominal: Present soft and normoactive bowel sounds Routine Extremities Exam Extremities: Present full ROM Routine Skin Exam Skin: Present intact, dry and warm Routine Neurological Exam Neurological: Present alert, oriented X3 and CN II-XII intact Routine Psychiatric Exam Psychiatric: Present normal affect and normal thought process Objective Labs 06/13/25 04:40 Assessment & Plan Problem List (1) Previous section: Status: Acute (2) delivery delivered: Status: Acute Assessment and plan: PPD/POD#2 1. Continue routine care 2. Transition to PO meds. 3. Encourage to ambulate/ breast-feed 4. Anticipate discharge home today. (3) Urinary retention with incomplete bladder emptying: Status: Acute Time Spent With Patient Time: Total time spent is greater than 50% in coordination of care (as documented) at patient's floor/unit and/or counseling patient:
--- NOTE | 2025-06-14 10:27 | ESDS_ITS ---
DS: Providers Provider Date of admission: 06/12/25 05:37 Primary care physician: Physician No Primary/Family Admitting Provider: Trinity Rebolledo MD ([facility]) Attending Provider on Admission: Jefferson Zambrano MD Consults: 06/12/25 09:28 Referral Routine Comment: Attending Provider on DC: Jefferson Zambrano MD Discharging Provider: Jefferson Zambrano MD DS: Diagnosis Discharge Diagnosis (1) delivery delivered: Status: Acute (2) Urinary retention with incomplete bladder emptying: Status: Acute (3) Vulvar varices in , second trimester: Status: Acute (4) Previous section: Status: Acute Problem List Completed Was Problem List Reviewed/Reconciled?: Yes Summary/Hosp Course Brief History: Patient is a 34-year-old -0-0-3 at 38-6/7 weeks with previous x 3 who presents for scheduled elective repeat section. All care is up-to-date on the chart with Dr. Sendy Rebolledo. On the day of admission she denied contractions loss of fluids or vaginal bleeding. She declined tubal ligation. Peripartum Data Delivery Method: Low Transverse Episiotomy Description: None Procedures: Procedures Operation Date: 06/06/25 07:45 <No data on this case meets the specified criteria> Operation Date: 06/12/25 07:45 Actual Procedure Side Surgeon p in OB Trinity Rebolledo ([facility])MD Time Spent with Patient Time attestation: Total time spent providing and/or coordinating discharge services: Exam Vital Signs Temp Pulse Resp BP Pulse Ox O2 Del Method 98.1 F 82 18 110/72 99 Room Air 06/14/25 08:00 06/14/25 08:00 06/14/25 08:00 06/14/25 08:00 06/14/25 08:00 06/14/25 08:00 Discharge Plan Plan Patient Disposition: HOME (Self Care) Patient condition on transfer: Stable Prescriptions/Referrals Prescriptions/Med Rec: New hydrocodone-acetaminophen 5-325 mg Tablet 1 tab PO Q6HR MDD 4 PRN (Reason: Patient rated pain 9 to 10) 5 Days Qty: 20 0RF ibuprofen 400 mg Tablet 800 mg PO Q8HR PRN (Reason: Pain Scale 4-6 (Moderate) 10 Days Qty: 40 0RF docusate sodium 100 mg Capsule 100 mg PO BID PRN (Reason: Constipation) 30 Days Qty: 30 0RF Continued PNV no.95-ferrous fumarate-FA [] 28 mg iron- 800 mcg tablet 1 tab PO QDAY Referrals: [facility] ([facility]),Trinity Whitaker MD [Physician] - No Primary/Family,Physician [Primary Care Provider] - Patient/Caregiver Discharge Instructions Meds to Beds: Yes Discharge Activity: activity as tolerated Education Materials: After Delivery [place] Concerns, Breast Care After , After a , Nutrition While , Understanding Depression, : Caring for Yourself, C Section Dc, Feel Healthy After Print Language: Green[place]ic Stand Alone Forms: Ingrid Award Info., Patient Portal Info Letter, DC from Surgery Discharge Order Discharge Orders: Discharge (Routine); Ordered 06/14/25 Ordered By: Jefferson Zambrano Planned Discharge Date 06/14/25
--- NOTE | 2025-06-14 14:21 | PC.NURSE ---
Cleared by Yuly from social work case manager.
--- NOTE | 2025-06-14 14:32 | PC.CC ---
Starr Walker is a 34-year-old female admitted for labor and delivery care. Personal Lines Account Executive made contact with Pt at bedside to complete ob assessment and discuss discharge disposition. Role and reason for the contact was explained to Pt. Demographic information was verified. Pt identified father of baby Chandan Walker [phone] as surrogate decision maker. Pt is independent with all ADLs, no source of DME. PCP is [facility]. At time of discharge patient will return home, family will provide transportation. Mother plans on combo feeing, has car seat, and all supplies for baby. Mother denies any use of substance, no DV, no CPS. Mother reports support system provided by extended family. Discharge Plan: Home Next of Kin: Chandan Walker [phone] PCP: [facility]
== END 2025-06-14 14:30 | disposition home or self-care (01) | DRG 540 ==
LOC: S4SX 06:31 → S4NX 07:56
PROVIDERS: Admitting Provider Obstetrics & Gynecology; Visit Provider Obstetrics & Gynecology
PROC: 10D00Z1 Extraction of Products of Conception, Low, Open Approach (ICD-10-PCS; CPT 59514; principal; 2025-06-12 07:30)
DX: O34.211 Maternal care for low transverse scar from previous cesarean delivery (principal); Z37.0 Single live birth; Z3A.38 38 weeks gestation of pregnancy; O87.8 Other venous complications in the puerperium; R33.9 Retention of urine, unspecified; O90.89 Other complications of the puerperium, not elsewhere classified
CPT/HCPCS: 36415; 80307; 85025; 86780; 86850; 86900; 86901; 86923; 87491; 87591; 87661; 94660; A4314; A4649; J0689; J2210; J2274; J2371; J2405; J2590; J2765; J3010; J3490; J7120; S0191; A9270; J2270

== ENCOUNTER 2025-06-20 10:32 | Outpatient (AMB) | payer MEDICAID, SELFPAY ==
--- NOTE | 2025-06-20 11:15 | AMBOBPPN_ITS ---
Vital Signs 06/20/25 11:16 Height 1.52 m Height Method Stated Weight 65.828 kg Weight Measurement Method Standing Scale BMI 28.3 BP 105/69 Blood Pressure Source Automatic Cuff Blood Pressure Location Right Upper Arm Position Sitting Respiration 17 Pulse 86 Pulse Source Monitor Temp 98.2 F Temp Source Temporal Artery Scan Pulse Oximetry (%) 98 Oxygen Delivery Method Room Air Allergies/Home Meds Allergies & Medications Allergies No Known Allergies Allergy (Verified 06/12/25 05:58) Intake Visit Data Collection New Patient or Established: Established Patient (seen at [facility] within 3 years) Reason for Visit:: Post Op CS 1 week Consent obtained for Telemed Visit: No Seen by Clinical Staff ONLY (RN/MA): No Workforce Staffing Advisor Required: No Do You Feel Safe at Home: Yes Authorities Contacted: N/A PCP or OBGYN visit in last 3 months: Yes Date of Last PCP or OBGYN visit: 06/14/25 Hx Now: No Are you currently on any form of Control: No Pain Present Currently: No Pain Scale Used: Turcios-Starkey/Numerical Pain scale:: 0 Smoking Status 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 Medical History Past Medical History: No Hx Neurological Disorders, No Hx Hypothyroidism, No Hx Hyperthyroidism, No Hx Breast Cancer, No Hx Cardiac Disorders, No Hx Hypertension, No Hx Cancer, No Hx Blood Disorders, No Hx Anemia, No Hx Gastrointestinal Disorders, No Hx Renal Disease, No Hx Deep Vein Thrombosis, No Hx Diabetes Mellitus Type 1, No Hx Diabetes Mellitus Type 2, No Hx Tubal Ligation, No Hx Hysterectomy and No Hx Polycystic Ovarian Syndrome Questionnaires Covid-19 Vaccine Questionnaire Has patient been vacinated for Covid-19 Have you been vacinated for Covid-19: Yes Social History Living Situation History Marital Status: Lives With: Family Housing: House Housing Other:: Patient stays at home and homeschools her children. Her is a COURT[employer] V[employer]IVER Tobacco History Smoking Status: Never smoker Second Hand Smoke Exposure: No Alcohol History Alcohol Intake: Never Alcohol Intake Frequency: holidays/special occasions only Domestic Abuse History Do You Feel Safe at Home: Yes EPDS - PP Depression Screening [place] Pospartum Depression Screen I have been able to laugh and see the funny side of things: (0) As much as I always could I have looked forward with enjoyment to things: (0) As much as I ever did I have blamed myself unnecessarily when things went wrong: (0) No, never I have been anxious or worried for no good reason: (0) No, not at all I have felt scared or panicky for no very good reason: (0) No, not at all Things have been getting on top of me: (0) No, I have been coping as well as ever I have been so unhappy that I have had difficulty sleeping: (0) No, not at all I have felt sad or miserable: (0) No, not at all I have been so unhappy that I have been crying: (0) No, never The thought of harming myself has occurred to me: (0) Never Total Score: EPDS Score: Referral is indicated for score of 9 or more, suicidal, or if provider believes patient is depressed regardless of score.: 0 EPDS completed yes Care OB Visit Log OB Flowsheet Initial Weight: Not Recorded Date -?-?-?-?-?-?-?-?-?-?-?-?- EGA Weight BP Alb Glu CTX Pres Fundal ht FHR Mov Dilation Station Effacement Hx Notes Visit Note 01/03/25 -?-?-?-?-?-?-?-?-?-?-?-?- 16w 0d 59.421 kg 114/71 130 active 02/10/25 -?-?-?-?-?-?-?-?-?-?-?-?- 21w 3d 61.462 kg 110/74 23 150 active 03/10/25 -?-?-?-?-?-?-?-?-?-?-?-?- 25w 3d 65.998 kg 104/67 26 140 active Schedule at 38 weeks. 04/09/25 -?-?-?-?-?-?-?-?-?-?-?-?- 29w 5d 67.642 kg 104/64 31 135 active wants CS 05/15 12/07 Positive movement no contractions no vaginal bleeding no loss of fluids 04/23/25 -?-?-?-?-?-?-?-?-?-?-?-?- 31w 5d 69.059 kg 126/75 33 143 active +FM, no UCs or LOF. No VB 05/09/25 -?-?-?-?-?-?-?-?-?-?-?-?- 34w 0d 70.874 kg 108/69 34 135 active +FM, no UCs or LOF 06/02/25 -?-?-?-?-?-?-?-?-?-?-?-?- 37w 3d 72.575 kg 114/74 cephalic 36 145 active Positive movement no regular contractions no vaginal bleeding Patient had a in the family of the RACHANA Calculator Estimated Delivery Date Method Current WG Current Estimate 06/20/25 LMP (Certain) 40w 0d Expected Delivery Route/Plan Patient's had x 3. Need to schedule fourth at approximately 38 weeks. Specific Issue/Plans 3 previous C-sections. Patient unsure whether she wants tubal ligation. Started [facility] DR Chasidy Ramirez, met him once Only [facility]NC labs ordered and on chart. No blood type on chart [facility] Labs from 12/26/23: No type and screen, RI/RPR NR/HepBSag-/HIV-/Hep C-/TB test-/CF test -/ No urine Cx/GC/Chlam available/TB test - GCT WNL 99 Notes Visit Date: 06/02/25 Last Updated by: Trinity Rebolledo ([facility] Clinic)MD scheduled 06/12/2025 at 7:30 in the morning. All instructions given. Patient will be consented the day of surgery. Patient to be there at 5:30 in the morning. Visit Date: 05/09/25 Last Updated by: Trinity Rebolledo ([facility] Clinic)MD CS Date 06/06/25 Visit Date: 03/10/25 Last Updated by: Trinity Rebolledo ([facility])MD Weight gain discussed. Patient has gained 10 pounds. Increase calories. Schedule glucose challenge test. Visit Date: 02/10/25 Last Updated by: Trinity Rebolledo ([facility] Clinic)MD Patient has a small cough and congestion she is producing a lot of mucus she states it was green now that a little more clear she has been doing this for at least 10 days. First trimester she had bronchitis and was treated with amoxicillin from a walk-in clinic she states she threw it up and did not finish it. Patient feels worn out. She has 3 boys at home. She is 21-3/7 weeks with her fourth boy. She is okay with trying a Z-Ronny at this point. Also she had a normal anatomy scan in [place] I do not have the results she has had a normal NIPT and I do not have those results patient is reporting vulvar varicosities and we did discuss a brace to her perineum. HPI Interval History: The patient is a 34-year-old -0-0-4 status post repeat 06/12/2025. She did well postoperatively however her baby did go to the nursery because he was having a hard time maintaining his oxygen saturations and failed his car seat test. She stayed in the hospital for 3 days. He is doing well now. She is only on ibuprofen. Her bleeding is light. She feels like she is healing well from her surgery. No problems with depression. For Was or delivery considered high risk: No Delivery type: Was labor induced: no Gestational age at delivery (weeks): 39 Delivery date: 06/12/25 Delivering provider: Dr Sendy Rebolledo Delivery complications: No Is patient : Yes Is patient sexually active: No Contraception planned: condoms/vasectomy Exam Narrative Physical exam: Abdomen soft fundus firm about 14 weeks incision clean dry and intact. General Limitations: no limitations General Appearance: alert, in no apparent distress, comfortable, cooperative, healthy appearing and well groomed Office Procedures OB Clinic LOC & Office Proc's Nursing/Assessment Patient Status: Established Patient OB Clinic Nursing Assessment: Medication Reconciliation, Update PMH in EMR and Vital Signs OB Clinic Coordination of Care: Complex Care and Chronic Disease 1-5, Cons ent,records obtained, informed consent, Education Simp Pt/Fam, Results/Orders obtained and Staff clarify orders Established Patient Charge Established Patient Point Assignment: 90 Established Patient Point Charge: EP Level 3 (80-115) Post Follow-up Visit Post Follow up Visit: Yes Assessment & Plan Diagnosis / Problem List (1) Routine Follow-Up: (2) care following delivery: Status: Acute Plan: Patient is healing well. Gradual return of exercise. She will follow-up for a 6-week check in about a month. Care Reviewed delivery summary and any complications: Yes Uterus involuted to: 14 weeks size Perineal / incision healing noted: Yes Screened for depression: Yes Depression counseling provided: No Discussed family planning & contraception: No Contraception planned: condoms/vasectomy Counseling on safe resumption of sexual activity: No Counseling on gradual excercise: Yes Discussed and concerns (describe), provided support: Yes Referred to computer technical support specialist: No Counseled on good nutrition, hydration, and self care: Yes Reviewed vaccine status: No Chronic & current problems reconciled on problem list: Yes Additional follow up plans: Follow-up in 4 to 6 weeks (FP) Tobacco Smoking Status: Never smoker
[2025-06-20 11:16] VITALS: BP 105/69; PULSE 86; RESP 17; TEMP 36.8; O2SAT 98; BMI 28.3
== END 2025-06-20 11:57 | disposition home or self-care (01) ==
LOC: HODSOBC 10:32
PROVIDERS: Supervising Provider Obstetrics & Gynecology; Visit Provider Obstetrics & Gynecology
DX: Z39.2 Encounter for routine postpartum follow-up (principal); Z39.1 Encounter for care and examination of lactating mother
CPT/HCPCS: 99213; Z1038; G0463

== ENCOUNTER 2025-08-01 13:38 | Outpatient (AMB) | payer MEDICAID, SELFPAY ==
--- NOTE | 2025-08-01 13:46 | AMBOBPPN_ITS ---
Vital Signs 08/01/25 13:47 Height 1.52 m Height Method Stated Weight 67.188 kg Weight Measurement Method Standing Scale BMI 29.0 BP 116/72 Blood Pressure Source Automatic Cuff Blood Pressure Location Left Upper Arm Position Sitting Respiration 16 Pulse 88 Pulse Source Monitor Temp 97.2 F Temp Source Oral Pulse Oximetry (%) 98 Oxygen Delivery Method Room Air Allergies/Home Meds Allergies & Medications Allergies No Known Allergies Allergy (Verified 08/01/25 13:47) Medication Reconciliation vit no.95-ferrous fumarate 28 mg-folic acid 800 mcg tablet () 1 tab PO QDAY 06/12/25 [History Confirmed 08/01/25] dicloxacillin 500 mg capsule 500 mg PO QID 10 days #40 caps 07/24/25 [Rx Confirmed 08/01/25] Intake Visit Data Collection New Patient or Established: Established Patient (seen at [facility] within 3 years) Reason for Visit:: post vist Seen by Clinical Staff ONLY (RN/MA): No Contract Administration Manager Required: No Do You Feel Safe at Home: Yes Authorities Contacted: N/A PCP or OBGYN visit in last 3 months: Yes Date of Last PCP or OBGYN visit: 06/20/25 Hx Now: No Are you currently on any form of Control: No Pain Present Currently: No Pain Scale Used: Turcios-Starkey/Numerical Pain scale:: 0 Smoking Status Smoking Status: Never smoker CONFERENCE SERVICES DIRECTOR: Past Medical History Additional Operations/Hospitalizations (year & reason): History of x 4 Other Relevant History: No significant past medical history including no asthma diabetes or hypertension Questionnaires Covid-19 Vaccine Questionnaire Has patient been vacinated for Covid-19 Have you been vacinated for Covid-19: Yes Social History Living Situation History Marital Status: Lives With: Family Housing: House Housing Other:: Pt stays at home and homeschools her children. Spouse is a EXECUTIVE COMPENSATION ANALYST. Tobacco History Smoking Status: Never smoker Second Hand Smoke Exposure: No Alcohol History Alcohol Intake: Never Alcohol Intake Frequency: holidays/special occasions only Domestic Abuse History Do You Feel Safe at Home: Yes EPDS - PP Depression Screening [place] Pospartum Depression Screen I have been able to laugh and see the funny side of things: (0) As much as I always could I have looked forward with enjoyment to things: (0) As much as I ever did I have blamed myself unnecessarily when things went wrong: (0) No, never I have been anxious or worried for no good reason: (0) No, not at all I have felt scared or panicky for no very good reason: (0) No, not at all Things have been getting on top of me: (0) No, I have been coping as well as ever I have been so unhappy that I have had difficulty sleeping: (0) No, not at all I have felt sad or miserable: (0) No, not at all I have been so unhappy that I have been crying: (0) No, never The thought of harming myself has occurred to me: (0) Never Total Score: EPDS Score: Referral is indicated for score of 9 or more, suicidal, or if provider believes patient is depressed regardless of score.: 0 EPDS completed yes Care OB Visit Log OB Flowsheet Initial Weight: Not Recorded Date -?-?-?-?-?-?-?-?-?-?-?-?- EGA Weight BP Alb Glu CTX Pres Fundal ht FHR Mov Dilation Station Effacement Hx Notes Visit Note 01/03/25 -?-?-?-?-?-?-?-?-?-?-?-?- 16w 0d 59.421 kg 114/71 130 active 02/10/25 -?-?-?-?-?-?-?-?-?-?-?-?- 21w 3d 61.462 kg 110/74 23 150 active 03/10/25 -?-?-?-?-?-?-?-?-?-?-?-?- 25w 3d 65.998 kg 104/67 26 140 active Schedule at 38 weeks. 04/09/25 -?-?-?-?-?-?-?-?-?-?-?-?- w 5d 67.642 kg 104/64 31 135 active wants CS 05/15 12/07 Positive movement no contractions no vaginal bleeding no loss of fluids 04/23/25 -?-?-?-?-?-?-?-?-?-?-?-?- 31w 5d 69.059 kg 126/75 33 143 active +FM, no UCs or LOF. No VB 05/09/25 -?-?-?-?-?-?-?-?-?-?-?-?- 34w 0d 70.874 kg 108/69 34 135 active +FM, no UCs or LOF 06/02/25 -?-?-?-?-?-?-?-?-?-?-?-?- 37w 3d 72.575 kg 114/74 cephalic 36 145 active Positive movement no regular contractions no vaginal bleeding Patient had a in the family of the RACHANA Calculator Estimated Delivery Date Method Current WG Current Estimate 06/20/25 LMP (Certain) 46w 0d Expected Delivery Route/Plan Patient's had x 3. Need to schedule fourth at approximately 38 weeks. Specific Issue/Plans 3 previous C-sections. Patient unsure whether she wants tubal ligation. Started [facility] DR Chasidy Ramirez, met him once Only [facility] labs ordered and on chart. No blood type on chart [facility] Labs from 12/26/23: No type and screen, RI/RPR NR/HepBSag-/HIV-/Hep C-/TB test-/CF test -/ No urine Cx/GC/Chlam available/TB test - GCT WNL 99 Notes Visit Date: 06/02/25 Last Updated by: Trinity Rebolledo ([facility] Clinic)MD scheduled 06/12/2025 at 7:30 in the morning. All instructions given. Patient will be consented the day of surgery. Patient to be there at 5:30 in the morning. Visit Date: 05/09/25 Last Updated by: Trinity Rebolledo ([facility])MD CS Date 06/06/25 Visit Date: 03/10/25 Last Updated by: Trinity Rebolledo ([facility])MD Weight gain discussed. Patient has gained 10 pounds. Increase calories. Schedule glucose challenge test. Visit Date: 02/10/25 Last Updated by: Trinity Rebolledo ([facility])MD Patient has a small cough and congestion she is producing a lot of mucus she states it was green now that a little more clear she has been doing this for at least 10 days. First trimester she had bronchitis and was treated with amoxicillin from a walk-in clinic she states she threw it up and did not finish it. Patient feels worn out. She has 3 boys at home. She is 21-3/7 weeks with her fourth boy. She is okay with trying a Z-Ronny at this point. Also she had a normal anatomy scan in [place] I do not have the results she has had a normal NIPT and I do not have those results patient is reporting vulvar varicosities and we did discuss a brace to her perineum. HPI Interval History: The patient is a 34-year-old G4 now P4 004 status post elective repeat 06/12/25 at [facility] by Dr. Sendy Rebolledo. Surgery was uncomplicated and she did not have a lot of scar tissue present. They had to replace her spinal once because it did not work the first time. The patient did have an episode of mastitis and she called the office I called in dicloxacillin but somehow the patient did not think this was called in and her pharmacist did not call her to tell her I called the medication in. She stated it resolved with conservative measures. She has had mastitis before in the past and states she has a large amount of milk that flows and if she gets engorged at all she is prone to mastitis. Today the patient denies depression. No fevers chills. No nausea and vomiting. She feels like she is healing slower this time and she is concerned because she thinks her incision looks a little lumpy. Of note it was #4. She has 3 boys at home age 6, 4 and 2. Her works as a EXECUTIVE COMPENSATION ANALYST of a nonprofit and she states he had to go to back to work in 1 week. She also homeschools her children. Was or delivery considered high risk: No Delivery type: Was labor induced: no Gestational age at delivery (weeks): 39 Delivery date: 06/12/25 Delivering provider: Dr Sendy Rebolledo Delivery complications: No Is patient : Yes Is patient sexually active: No Contraception planned: Condoms and natural family-planning Review of Systems Review of Systems ROS limited to current CONFERENCE SERVICES DIRECTOR complaints: No Narrative Review of Systems: Patient denies depression. She denies heavy vaginal bleeding. She denies pelvic pain. She sometimes reports some stabbing pain especially on the right side of her incision. No erythema. No wound discharge. No hot flashes night sweats or fevers. She denies any urinary complaints. Exam Narrative Physical exam: Fundus not palpable abdominally . Incision clean dry and intact small amount of indention around her incision. General Limitations: no limitations General Appearance: alert, in no apparent distress, comfortable, cooperative, healthy appearing, well developed and well groomed Chest Chest inspection: Present normal inspection and symmetric chest wall rise Resp Respiratory exam: Present normal lung sounds bilaterally Card Cardiovascular exam: Present regular rate, normal rhythm and normal heart sounds Abdominal Abdominal exam: Present soft and normal bowel sounds Psych Psychiatric exam: Present normal affect and normal mood Skin Skin exam: Present warm, dry, intact and normal color Office Procedures OB Clinic LOC & Office Proc's Nursing/Assessment Patient Status: Established Patient OB Clinic Nursing Assessment: Medication Reconciliation, Update PMH in EMR and Vital Signs OB Clinic Coordination of Care: Education Complex Pt/Fam, Consent,records obtained, informed consent, Lab and Imaging orders, Results/Orders obtained and Staff clarify orders Established Patient Charge Established Patient Point Assignment: 85 Post Follow-up Visit Post Follow up Visit: Yes Assessment & Plan Care Reviewed delivery summary and any complications: Yes Uterus involuted to: less than 6 week size Perineal / incision healing noted: Yes Screened for depression: Yes Depression counseling provided: No Discussed family planning & contraception: Yes Contraception planned: Condoms and natural family-planning Counseling on safe resumption of sexual activity: Yes Counseling on gradual excercise: Yes Discussed and concerns (describe), provided support: Yes Referred to asset protection specialist: No Counseled on good nutrition, hydration, and self care: Yes Reviewed vaccine status: No Chronic & current problems reconciled on problem list: Yes Additional follow up plans: Follow-up in 1 year Infant care discussed; questions answered: feeding and sleep Follow up: routine/prn Additional counseling & anticipatory guidance provided: Abdominal ultrasound of wound ordered as patient feels there is a lump .
[2025-08-01 13:47] VITALS: BP 116/72; PULSE 88; RESP 16; TEMP 36.2; O2SAT 98; BMI 29.0
== END 2025-08-01 14:36 | disposition home or self-care (01) ==
LOC: HODSOBC 13:38
PROVIDERS: Supervising Provider Obstetrics & Gynecology; Visit Provider Obstetrics & Gynecology
DX: Z39.2 Encounter for routine postpartum follow-up (principal); Z39.1 Encounter for care and examination of lactating mother
CPT/HCPCS: 59430; 99213; G0463

== ENCOUNTER → 2025-08-28 | Outpatient (CLI) | payer MEDICAID, SELFPAY ==
--- NOTE | 2025-08-28 11:00 | XR_ITS ---
Examination: Pelvic ultrasound, transabdominal, complete Technique: Transabdominal ultrasound of the pelvis performed using grayscale imaging Date and time of exam: August 28, 2025, 1111 hours INDICATIONS: Pelvic pain post 2 months ago FINDINGS: Uterus 8.1 cm endometrial stripe 0.2 cm No uterine mass or intrauterine gestation Right ovary 3.1 cm arterial flow Left ovary 3.7 cm arterial flow IMPRESSION: Negative examination
== END | disposition home or self-care (01) ==
PROVIDERS: Referring Provider Obstetrics & Gynecology; Visit Provider Obstetrics & Gynecology
DX: Z39.2 Encounter for routine postpartum follow-up (principal); T14.8XXA Other injury of unspecified body region, initial encounter
CPT/HCPCS: 76856